=== PATIENT | female | born 1950 | race Asian ===

== ENCOUNTER → 2016-07-25 | Outpatient (CLI) | payer OTHER, MEDICARE | LOC: FIMAGING 14:20 | DX: Z12.31 Encounter for screening mammogram for malignant neoplasm of breast (principal); Z85.3 Personal history of malignant neoplasm of breast | CPT/HCPCS: G0202 ==

== ENCOUNTER → 2017-08-10 | Outpatient (CLI) | payer OTHER, MEDICARE | LOC: FIMAGING 14:27 | PROVIDERS: ATTEND Family Medicine Geriatric Medicine | DX: Z12.31 Encounter for screening mammogram for malignant neoplasm of breast (principal); Z85.3 Personal history of malignant neoplasm of breast; Z80.3 Family history of malignant neoplasm of breast ==

== ENCOUNTER → 2017-10-27 | Outpatient (CLI) | payer OTHER, MEDICARE | LOC: FIMAGING 08:54 | PROVIDERS: ATTEND Family Medicine Geriatric Medicine | DX: Z13.820 Encounter for screening for osteoporosis (principal); M81.0 Age-related osteoporosis without current pathological fracture ==

== ENCOUNTER 2017-12-14 14:02 | Emergency (ER) | payer OTHER, MEDICARE ==
[2017-12-14] MEDS ORDERED: ONDANSETRON 4 MG/2 ML VIAL IVP ONE (14:34)
[2017-12-14] MEDS ORDERED: DEXAMETHASONE 10 MG/ML VIAL IVP ONE (14:34)
[2017-12-14] MEDS ORDERED: NS 1,000 ML IV ONE (14:34)
[2017-12-14] MEDS ORDERED: LORazepam 2 MG/ML INJ IVP ONE (14:34)
--- NOTE | 2017-12-14 14:34 | EDPHY ---
H & P Stated Complaint: vertigo/room spinning n/v since thursday Time Seen by Provider: 12/14/17 14:31 HPI/ROS: HPI: This is a 66-year-old female who presents with Chief Complaint: vertigo/room spinning n/v since Thursday Location: Head Quality: Room spinning Duration: 3 days Signs and Symptoms: no fever, + nausea, + vomiting, no photophobia, no noise sensitivity, no neck stiffness, no ear pain, no tinnitus, no nasal congestion, no sinus pressure, no weakness, no radiation, no aura, no headache Timing: Acute, constant Severity: Moderate Context: Patient presents with waking up approximately 3 days ago with room spinning accompanied by nausea and vomiting a total of 2 times over the last 3 days. She denies any headache, tinnitus, carpal pedal spasms, chest pain, shortness of breath, abdominal pain. She has not had a recent upper respiratory infection and denies fever. She reports that in June she experienced few days of vertigo similar to this presentation. She went to physical therapy for Delgado maneuver with resolution of vertigo. She is only able to eat small amounts of food due to the nausea. She has not changed elevations. Dizziness is increased with moving her head side to side or changing positions. Modifying Factors: None Comment: ROS: see HPI Constitutional: No fever, no chills, no weight loss Eyes: No blurred vision Respiratory: No shortness of breath, no cough Cardiovascular: No chest pain, no palpitations Gastrointestinal: + nausea, + vomiting, no diarrhea, no hematemesis, no blood in stool Genitourinary: No dysuria, no blood in urine Extremities: No myalgias, no edema Neurologic: No weakness, no numbness Skin: No rashes, no petechiae Hematologic: No bruising, no bleeding MEDICAL/SURGICAL/SOCIAL HISTORY: Medical history: Breast cancer, cancer Surgical history: Denies Social history: . Family history noncontributory. CONSTITUTIONAL: Extremely polite and cooperative nontoxic-appearing female who has her eyes closed, awake and alert, no obvious distress HEENT: Atraumatic and normocephalic, PERRL, EOMI. Nares patent; no rhinorrhea; no nasal mucosal edema. Tympanic membranes clear. Oropharynx clear, no exudate and moist pink mucosa. Airway patent. No lymphadenopathy. No meningismus. Cardiovascular: Normal S1/S2, regular rate, regular rhythm, without murmur rub or gallop. PULMONARY/CHEST: Symmetrical and nontender. Clear to auscultation bilaterally. Good air movement. No accessory muscle usage. ABDOMEN: Soft, nondistended, nontender, no rebound, no guarding, no peritoneal signs, no masses or organomegaly. No CVAT. EXTREMITIES: 2/2 pulses, strength 5/5, no deformities, no clubbing, no cyanosis or edema. NEUROLOGICAL: no focal neuro deficits. GCS 15. Lateral nystagmus noted with Jose David -Hallpike maneuver. Cranial nerves 2-12 grossly intact. SKIN: Warm and dry, no erythema. no rash. Good capillary refill. Source: Patient, Old records Exam Limitations: No limitations - Personal History Current Tetanus Diphtheria and Acellular Pertussis (TDAP): Yes - Medical/Surgical History Hx Asthma: No Hx Chronic Respiratory Disease: No Hx Diabetes: No Hx Cardiac Disease: No Hx Renal Disease: No Hx Cirrhosis: No Hx Alcoholism: No Hx HIV/AIDS: No Hx Splenectomy or Spleen Trauma: No Other PMH: breast cancer/htn - Social History Smoking Status: Never smoked Constitutional: Initial Vital Signs Temperature (C) 36.7 C 12/14/17 14:24 Heart Rate 63 12/14/17 14:24 Respiratory Rate 16 12/14/17 14:24 Blood Pressure 153/87 H 12/14/17 14:24 O2 Sat (%) 97 12/14/17 14:24 O2 Delivery Mode Room Air Allergies/Adverse Reactions: azithromycin Allergy (Verified 12/14/17 14:23) Penicillins Allergy (Verified 12/14/17 14:23) Home Medications: Medication Instructions Recorded Meclizine HCl [Meclizine HCl 25 mg 25 - 50 mg PO Q6 PRN #15 tab 12/14/17 (RX,OTC)] Metoprolol Succinate 12/14/17 Ondansetron Odt [Zofran Odt 4 mg 4 mg PO Q4 PRN #12 tab 12/14/17 (*)] Medical Decision Making ED Course/Re-evaluation: Vital signs reviewed and stable. Labs, IV fluids, IV medications ordered Given 1 L normal saline, IV Decadron 8 mg, IV Zofran, IV Ativan 1 mg Patient has politely declined imaging of her brain. No neurological deficits noted. Jackson-Hallpike maneuver positive for BPPV. 1527: Reassessed patient reports moderate relief of symptoms. Patient given meclizine 25 mg prior to discharge. Will discharge patient home with prescriptions for meclizine and Zofran. She will call her primary care provider for physical therapy Delgado maneuver as it has helped her in the past. I did give her an ENT referral. No signs of CVA, central vertigo, Onesimo Santos syndrome, vertebrobasilar insufficiency, vertebral artery dissection, migraine, anemia, renal failure. This patient was seen under the supervision of my secondary supervising physician. I evaluated care for this patient independently. Discussed this patient with Dr. Saunders. Differential Diagnosis: Dizziness including but not limited to peripheral and central causes of vertigo , orthostatic causes including dehydration, and blood loss. - Data Points Laboratory Results: Laboratory Results 12/14/17 14:50 12/14/17 14:50 12/14/17 12/14/17 14:50 14:50 WBC 8.82 10^3/uL 10^3/uL (3.80-9.50) RBC 4.36 10^6/uL 10^6/uL (4.18-5.33) Hgb 14.1 g/dL g/dL (12.6-16.3) Hct 40.0 % % (38.0-47.0) MCV 91.7 fL fL (81.5-99.8) MCH 32.3 pg pg (27.9-34.1) MCHC 35.3 g/dL g/dL (32.4-36.7) RDW 12.1 % % (11.5-15.2) Plt Count 249 10^3/uL 10^3/uL (150-400) MPV 9.7 fL fL (8.7-11.7) Neut % (Auto) 87.7 % H % (39.3-74.2) Lymph % (Auto) 10.0 % L % (15.0-45.0) [place] % (Auto) 1.5 % L % (4.5-13.0) Eos % (Auto) 0.0 % L % (0.6-7.6) Baso % (Auto) 0.5 % % (0.3-1.7) Nucleat RBC Rel Count 0.0 % % (0.0-0.2) Absolute Neuts (auto) 7.74 10^3/uL H 10^3/uL (1.70-6.50) Absolute Lymphs (auto) 0.88 10^3/uL L 10^3/uL (1.00-3.00) Absolute Monos (auto) 0.13 10^3/uL L 10^3/uL (0.30-0.80) Absolute Eos (auto) 0.00 10^3/uL L 10^3/uL (0.03-0.40) Absolute Basos (auto) 0.04 10^3/uL 10^3/uL (0.02-0.10) Absolute Nucleated RBC 0.00 10^3/uL 10^3/uL (0-0.01) Immature Gran % 0.3 % % (0.0-1.1) Immature Gran # 0.03 10^3/uL 10^3/uL (0.00-0.10) Sodium 139 mEq/L mEq/L (135-145) Potassium 3.8 mEq/L mEq/L (3.3-5.0) Chloride 107 mEq/L mEq/L (97-110) Carbon Dioxide 20 mEq/l L mEq/l (22-31) Anion Gap 12 mEq/L mEq/L (8-16) BUN 12 mg/dL mg/dL (7-23) Creatinine 0.6 mg/dL mg/dL (0.6-1.0) Estimated GFR > 60 Glucose 133 mg/dL H mg/dL (70-100) Calcium 9.4 mg/dL mg/dL (8.5-10.4) Medications Given: Discontinued Medications Dexamethasone (Decadron Injection) 10 mg IVP EDNOW ONE Stop: 12/14/17 14:35 Last Admin: 12/14/17 14:59 Dose: 10 mg Sodium Chloride (Ns) 1,000 mls @ 0 mls/hr IV ONCE ONE; Wide Open PRN Reason: Protocol Stop: 12/14/17 14:35 Last Admin: 12/14/17 14:59 Dose: 1,000 mls Lorazepam (Ativan Injection) 1 mg IVP EDNOW ONE Stop: 12/14/17 14:35 Last Admin: 12/14/17 14:59 Dose: 1 mg Meclizine HCl (Meclizine Hcl) 25 mg PO EDNOW ONE Stop: 12/14/17 15:33 Last Admin: 12/14/17 15:47 Dose: 25 mg Ondansetron HCl (Zofran) 4 mg IVP EDNOW ONE Stop: 12/14/17 14:35 Last Admin: 12/14/17 14:59 Dose: 4 mg Departure - Departure Disposition: Home, Routine, Self-Care Clinical Impression: Benign paroxysmal positional vertigo, bilateral Condition: Good Instructions: Benign Paroxysmal Positional Vertigo (ED) Additional Instructions: Rest until you are feeling better. Avoid any exertional activities. Consume a minimum of 8-10 glasses of water or electrolyte fluid replacement drinks that include Gatorade, Powerade, Pedialyte. Eat a bland diet for the next 48 hours and then slowly advance as tolerated. Take Zofran 1 tab every 4 hours as needed for nausea, vomiting. Take meclizine every 6 hr as needed for vertigo. If symptoms continue to persist follow up with physical therapy or call ENT. Referrals: Stiven Trivedi MD [Medical Doctor] - As per Instructions Prescriptions: Meclizine HCl [Meclizine HCl 25 mg (RX,OTC)] 25 - 50 mg PO Q6 PRN #15 tab PRN Reason: Dizziness Ondansetron Odt [Zofran Odt 4 mg (*)] 4 mg PO Q4 PRN #12 tab PRN Reason: Nausea/Vomiting, Use 1st
[2017-12-14 15:04] LABS: PLATELET COUNT 249 10^3/uL (150-400)
[2017-12-14] MEDS ORDERED: MECLIZINE HCL 25 MG TAB PO ONE (15:32)
[2017-12-14 15:56] VITALS: BP 143/87
== END 2017-12-14 15:58 | disposition home or self-care (01) ==
DX: H81.13 Benign paroxysmal vertigo, bilateral (principal); E86.9 Volume depletion, unspecified; I10 Essential (primary) hypertension; Z85.3 Personal history of malignant neoplasm of breast
CPT/HCPCS: 96361; 96374; 96375; 99284; J1100; J2060; J2405

== ENCOUNTER → 2018-06-14 | Outpatient (CLI) | payer OTHER, MEDICARE | LOC: BHFA 10:30 | PROVIDERS: ATTEND Internal Medicine Interventional Cardiology | DX: I10 Essential (primary) hypertension (principal) ==

== ENCOUNTER → 2018-06-28 | Outpatient (CLI) | payer OTHER, MEDICARE | LOC: BHFA 15:30 | PROVIDERS: ATTEND Internal Medicine Cardiovascular Disease | DX: I10 Essential (primary) hypertension (principal) ==

== ENCOUNTER → 2018-08-16 | Outpatient (CLI) | payer OTHER, MEDICARE | LOC: FIMAGING 12:59 | PROVIDERS: ATTEND Family Medicine Geriatric Medicine | DX: Z12.31 Encounter for screening mammogram for malignant neoplasm of breast (principal); Z85.3 Personal history of malignant neoplasm of breast; Z80.3 Family history of malignant neoplasm of breast ==